=== PATIENT | female | born 1990 | race Hispanic/Latino ===

== ENCOUNTER 2018-01-10 21:36 | Outpatient (CLI) | payer SELFPAY ==
[2018-01-10] MEDS ORDERED: LACTATED RINGERS 1,000 ML IV ONE (22:57)
[2018-01-11 00:16] LABS: Bacteria,Urine 1+ /HPF (Negative); Bilirubin,Urine NEG (Negative); Blood,Urine NEG (Negative); Calcium Oxalate Crystals,Urine FEW; Color,Urine Amber (Yellow); Mucus,Urine 1+ /HPF
[2018-01-11 00:19] LABS: Amphetamine Screen,Urine PRESUMPTIVE NEGATIVE; Benzodiazepines Screen,Urine PRESUMPTIVE NEGATIVE; Cannabinoid Screen,Urine PRESUMPTIVE NEGATIVE; Cocaine Screen,Urine PRESUMPTIVE NEGATIVE; Methadone Screen,Urine PRESUMPTIVE NEGATIVE; Opiate Screen,Urine PRESUMPTIVE NEGATIVE
[2018-01-11] MEDS ORDERED: ceFAZolin 2 GM in NACL 0.9% 100 ML IV ONE (00:51)
[2018-01-11 00:56] VITALS: BP 138/77
[2018-01-11] MEDS: BRETHINE SUB-Q SCH ×3 (01:00→01:53)
== END 2018-01-11 02:22 | disposition home or self-care (01) ==
LOC: TRG 21:36
PROVIDERS: ATTEND Obstetrics & Gynecology
DX: O47.03 False labor before 37 completed weeks of gestation, third trimester (principal); O99.333 Smoking (tobacco) complicating pregnancy, third trimester; Z3A.36 36 weeks gestation of pregnancy
CPT/HCPCS: 59025; 80307; 81001; 87116; 96360; 96361; 96365; 96372; J0690; J3105; J7120

== ENCOUNTER 2018-01-12 07:47 | Inpatient (IN) | payer OTHER ==
[2018-01-12] MEDS ORDERED: LACTATED RINGERS 1,000 ML IV ONE (08:25)
[2018-01-12] MEDS ORDERED: LACTATED RINGERS 1,000 ML ONE (08:40)
[2018-01-12 11:16] LABS: Hematocrit 35.5 % (30.3-42.9); Hemoglobin 12.2 gm/dl (10.1-14.3); Mean Corpuscular HGB Conc 34 % (30-34); Mean Corpuscular Hemoglobin 29 pg (28-32); Mean Corpuscular Volume 84 fl (79-97); Platelet Count 210 K/mm3 (140-440); Red Blood Count 4.21 M/mm3 (3.65-5.03)
[2018-01-12 11:30] LABS: Alanine Aminotransferase 9 units/L (7-56)
[2018-01-12] MEDS ORDERED: LACTATED RINGERS 1,000 ML IV SCH ×2 (12:00→13:00)
[2018-01-12] MEDS ORDERED: MINERAL OIL PO PRN ×2 (12:36→12:56)
[2018-01-12] MEDS ORDERED: XYLOCAINE 2% INFILTRATI ONE ×2 (12:36→12:56)
[2018-01-12] MEDS ORDERED: STADOL IV PRN (12:36)
[2018-01-12] MEDS ORDERED: SUBLIMAZE IV PRN (12:36)
[2018-01-12] MEDS ORDERED: POLYCILLIN/NS 2 GM/100 ML 2 GM/100 ML BAG IV ONE (12:36)
[2018-01-12] MEDS ORDERED: ZOFRAN IV PRN ×2 (12:56→21:45)
[2018-01-12] MEDS ORDERED: BRETHINE SUB-Q PRN (12:56)
[2018-01-12] MEDS ORDERED: BRETHINE IVP PRN (12:56)
--- NOTE | 2018-01-12 12:56 | History and Physical Report ---
History of Present Illness Date of examination: 01/12/18 Date of admission: 01/12/18 07:48 Chief complaint: Labor History of present illness: Pt is a 28yo WF EDC 02/03/18; EGA 36 6/7 weeks presents to L&D complaining of RUC's q 3-4 mins and is currently dilated 4/70/V/-2. She has not had care with this , but had a C Section @ 30 weeks with her previous , and desires a TOLAC. She has a history of drug use and suicidal attempts, but none recently. Past History Past Medical History: no pertinent history Past Surgical History: section Family/Genetic History: none Social history: no significant social history, single - Obstetrical History Expected Date of Delivery: 02/03/18 Actual Gestation: 36 Week(s) 6 Day(s) : 3 Medications and Allergies Allergies Allergy/AdvReac Type Severity Reaction Status Date / Time No Known Allergies Allergy Verified 01/12/18 07:55 Home Medications Medication Instructions Recorded Confirmed Last Taken Type Vit-Fe Fumar-FA [ 1 tab PO QDAY 01/12/18 01/12/18 01/09/18 09: 00 History Vitamin] 1 Active Meds: Active Medications Butorphanol Tartrate (Stadol) 2 mg IV Q2H PRN PRN Reason: Pain , Severe (7-10) Fentanyl (Sublimaze) 100 mcg IV Q2H PRN PRN Reason: Labor Pain Lactated Ringer's (Lactated Ringers) 1,000 mls @ 125 mls/hr IV DIRECT JOE Ampicillin Sodium (Polycillin/Ns 2 Gm/100 Ml) 2 gm in 100 mls @ 100 mls/hr IV ONCE ONE; Protocol Stop: 01/12/18 13:35 Mineral Oil (Mineral Oil) 30 ml PO QHS PRN PRN Reason: Constipation Review of Systems All systems: negative - Vital Signs Vital signs: Vital Signs Pulse Pulse Ox 86 95 01/12/18 08:12 01/12/18 08:12 Temp Pulse Resp BP Pulse Ox 97.9 F 88 20 127/81 97 01/12/18 08:15 01/12/18 12:28 01/12/18 08:15 01/12/18 12:28 01/12/18 12:19 - Physical Exam Breasts: Positive: deferred Cardiovascular: Regular rate Lungs: Positive: Clear to auscultation Abdomen: Positive: normal appearance, soft Genitourinary (Female): Positive: normal external genitalia Vagina: Positive: normal moisture Uterus: Positive: enlarged Extremities: Positive: normal - Obstetrical FHR: category 1 Uterine Contraction Monitor Mode: External Cervical Dilatation: 4 Cervical Effacement Percentage: 70 station: -2 Uterine Contraction Pattern: Regular Uterine Tone Measurement Phase: Contraction Uterine Contraction Intensity: Moderate Results Result Diagrams: 01/12/18 10:26 01/12/18 10:26 Abnormal lab results 01/12/18 Range/Units 10:26 Creatinine 0.4 L (0.7-1.2) mg/dL All other labs normal. Assessment and Plan - Patient Problems (1) 36 weeks gestation of Onset Date: 01/12/18 Current Visit: Yes Status: Acute Plan to address problem: A: IUP @ 36 6/7 weeks in labor Previous C Section No care History of drug use P: Admit to L&D for expectant vaginal delivery () Obtain labs. (2) Previous section Onset Date: 01/12/18 Current Visit: Yes Status: Chronic (3) Cocaine abuse Onset Date: 01/12/18 Current Visit: No Status: Chronic (4) Insufficient care in third trimester Onset Date: 01/12/18 Current Visit: No Status: Acute
[2018-01-12] MEDS ORDERED: PITOCin/NS 30 UNIT/500ML 30 UNITS/500 ML BAG IV SCH (13:00)
[2018-01-12] MEDS ORDERED: PITOCin/NS 20 UNIT/1000ML DRIP 20 UNITS/1,000 ML BAG IV SCH ×2 (13:00→22:00)
--- NOTE | 2018-01-12 13:55 | Anesthesia Consultation ---
Anesthesia Consult and Med Hx Date of service: 01/12/18 - Airway Anesthetic Teeth Evaluation: Poor ROM Head & Neck: Adequate Mental/Hyoid Distance: Adequate Mallampati Class: Class II Intubation Access Assessment: Probably Good - Pre-Operative Health Status ASA Pre-Surgery Classification: ASA2 Proposed Anesthetic Plan: Epidural, Spinal - Pulmonary Hx Asthma: No COPD: No Hx Pneumonia: No - Cardiovascular System Hx Hypertension: No - Central Nervous System Hx Seizures: No Hx Psychiatric Problems: Yes (depression) - Endocrine Hx Renal Disease: No Hx End Stage Renal Disease: No Hx Hypothyroidism: No Hx Hyperthyroidism: No - Hematic Hx Anemia: Yes (w/first ) Hx Sickle Cell Disease: No - Other Systems Hx Alcohol Use: No Hx Substance Use: Yes (cocaine positive on UDS)
[2018-01-12] MEDS ORDERED: NARCAN 2 MG/2 ML IV PRN (14:00)
[2018-01-12] MEDS ORDERED: fentaNYL-BUPIV 2 MCG/ML-0.125% 200 MCG/100 ML BAG EPIDURAL SCH (14:00)
[2018-01-12 14:20] LABS: Bacteria,Urine 2+ /HPF (Negative); Bilirubin,Urine NEG (Negative); Blood,Urine LG (Negative); Color,Urine Yellow (Yellow); Mucus,Urine FEW /HPF; Protein,Urine <15 mg/dL mg/dL (Negative); Urobilinogen,Urine < 2.0 mg/dL (<2.0)
[2018-01-12 14:21] LABS: Amphetamine Screen,Urine PRESUMPTIVE NEGATIVE; Benzodiazepines Screen,Urine PRESUMPTIVE NEGATIVE; Cannabinoid Screen,Urine PRESUMPTIVE NEGATIVE; Cocaine Screen,Urine PRESUMPTIVE NEGATIVE; Methadone Screen,Urine PRESUMPTIVE NEGATIVE; Opiate Screen,Urine PRESUMPTIVE NEGATIVE
--- NOTE | 2018-01-12 15:07 | Ultrasound Report ---
OB ULTRASOUND History no care, rule out spontaneous rupture of membranes. Technique: Transabdominal ultrasound with Doppler interrogation. Gestation: Single Position: Cephalic Amniotic Fluid: Normal MERCED = 15.7 cm Placenta: Posterior Placental Grade: 2 Heart Rate: 135 BPM Cervical length: Obscured NEUROANATOMY VISUALIZED: Choroid Plexus Cisterna Magnum Cerebellum Lateral Ventricle ANATOMY VISUALIZED: Stomach Kidneys Bladder Diaphragm 4 Chamber Heart Heart 3 Vessel Cord Abd. Cord Insert SPINE VISUALIZED: Longitudinal Transverse BPD: 8.5 cm = 34 w 1 d HC: 31.1 cm = 34 w 6 d AC: 34.5 cm = 38 w 3 d FL: 7.3 cm = 37 w 3 d HC/AC Ratio: 0.9 Cephalic Index: 81.9 Estimated Weight: 3151 grams Clinical age = 36 w 6 d EDC: 02/03/18 US Gest. Age = 36 w 2 d EDC: 02/07/18 IMPRESSION: Viable, single intrauterine as described.
[2018-01-12] MEDS: AMPICILLIN/NS 1 GM/50 ML 1 GM/50 ML BAG IV SCH ×2 (17:21→20:47)
--- NOTE | 2018-01-12 21:42 | Procedure Note ---
OB Delivery Note - Delivery Date of Delivery: 01/12/18 Surgeon: LUL PRICE Estimated blood loss: 300cc - Vaginal Delivery presentation: vertex Delivery position: OA Intrapartum events: no care, labor-<37 weeks, PROM->1hr before delivery Delivery induction: none Delivery augmentation: pitocin Delivery monitor: external FHT, internal uterine Route of delivery: Delivery placenta: spontaneous Delivery cord: nuchal cord (x1), 3 umbilical vessels Episiotomy: none Delivery laceration: 2nd degree, vaginal side wall Delivery repair: vicryl Anesthesia: epidural Delivery comments: delivered OA and placed on Mom's chest for [id number] bonding and delayed cord clamping, cut by GrandMa. Peds/RT in attendance. - A at 1 minute: 8 at 5 minutes: 9 Infant Gender: Male (3247gms)
[2018-01-12] MEDS ORDERED: NORCO 5/325 PO PRN (21:45)
[2018-01-12] MEDS ORDERED: PHENERGAN PO PRN (21:45)
[2018-01-12] MEDS ORDERED: TYLENOL PO PRN (21:45)
[2018-01-12] MEDS ORDERED: LANSINOH TP PRN (21:45)
[2018-01-12] MEDS ORDERED: PHENERGAN PR PRN (21:45)
[2018-01-12] MEDS ORDERED: DULCOLAX PR PRN (21:45)
[2018-01-12] MEDS ORDERED: TUCKS PAD TP PRN (21:45)
[2018-01-12] MEDS ORDERED: BENADRYL PO PRN (21:45)
[2018-01-12] MEDS ORDERED: MILK OF MAGNESIA PO PRN (21:45)
[2018-01-12] MEDS ORDERED: SODIUM CHLORIDE FLUSH SYRINGE 10 ML IV PRN (22:00)
[2018-01-13] MEDS: COLACE PO SCH ×2 (01:39→21:52)
[2018-01-13] MEDS: MOTRIN PO SCH ×3 (01:41→23:58)
[2018-01-13] MEDS: FEOSOL PO SCH ×2 (06:49→21:52)
[2018-01-13 09:39] LABS: Hematocrit 32.1 % (30.3-42.9); Hemoglobin 10.9 gm/dl (10.1-14.3)
[2018-01-13] MEDS ORDERED: PRENATAL VITAMIN PO SCH (10:00)
--- NOTE | 2018-01-13 13:02 | Progress Note ---
Assessment and Plan - Patient Problems (1) 36 weeks gestation of Onset Date: 01/12/18 Current Visit: Yes Status: Resolved (2) Previous section Onset Date: 01/12/18 Current Visit: Yes Status: Resolved (3) Cocaine abuse Onset Date: 01/12/18 Current Visit: No Status: Resolved (4) Insufficient care in third trimester Onset Date: 01/12/18 Current Visit: No Status: Resolved (5) (normal spontaneous vaginal delivery) Onset Date: 01/13/18 Current Visit: Yes Status: Resolved Plan to address problem: A: S/P () - PPD#1 Doing well Asymptomatic anemia - stable P: May go home tomorrow. Subjective - Subjective Date of service: 01/13/18 Principal diagnosis: s/p - PPD #1 Interval history: Pt is feeling well without complaints. Bleeding improved. Patient reports: appetite normal, voiding normally, pain well controlled, flatus , ambulating normally, no dizzy ambulation, no nauseated : doing well, bottle feeding Objective - Vital Signs Latest vital signs: Vital Signs Temp Pulse Resp BP BP Pulse Ox 01/13/18 08:14 98.7 F 75 18 118/61 100 01/13/18 02:41 18 01/13/18 01:41 18 01/13/18 01:30 98.6 F 95 H 20 107/67 96 01/13/18 01:10 98.6 F 95 H 20 107/67 96 01/12/18 23:44 103 H 114/80 01/12/18 23:36 91 H 97 01/12/18 23:06 92 H 97 01/12/18 23:01 90 97 01/12/18 22:59 92 H 94 01/12/18 22:56 85 97 01/12/18 22:51 96 H 97 01/12/18 22:46 96 H 97 01/12/18 22:45 100 H 126/59 94 01/12/18 22:38 101 H 96 01/12/18 22:33 96 H 97 01/12/18 22:29 89 114/71 01/12/18 22:28 95 H 98 01/12/18 22:23 105 H 96 01/12/18 22:20 93 H 118/66 01/12/18 22:18 98 H 96 08/16/18 22:16 94 H 18 118/66 96 1618 22:13 93 H 97 1618 22:10 83 116/60 16/18 22:08 101 H 96 1618 22:04 87 18 116/60 97 16/18 22:03 85 97 1618 21:58 94 H 96 16/18 21:53 95 H 96 1618 21:48 98 H 94 1618 21:44 93 H 92 1618 21:43 81 134/79 98 16/18 21:40 98.0 F 99 H 18 134/79 97 16/18 21:22 84 94 1618 21:18 97 H 94 1618 21:13 89 95 1618 21:08 112 H 96 1618 21:03 91 H 97 1618 21:02 94 H 159/90 18 20:58 83 96 1618 20:53 88 96 1618 20:48 92 H 96 16/18 20:43 91 H 95 16/18 20:38 84 96 16/18 20:33 88 96 16/18 20:31 88 109/73 1618 20:28 98 H 96 16/18 20:23 81 96 1618 20:20 97 H 94 16/18 20:18 81 97 16/18 20:13 82 96 16/18 20:10 78 94 1618 20:08 89 95 16/18 20:03 85 94 16/18 20:01 76 115/67 16/18 19:58 89 96 16/18 19:53 84 96 16/18 19:48 85 96 16/18 19:43 81 96 16/18 19:38 91 H 97 16/18 19:33 87 95 16/18 19:31 72 111/61 16/18 19:29 75 113/59 94 16/18 19:28 84 95 16/18 19:23 80 96 16/18 19:21 98.2 F 84 18 113/59 96 08/16/18 19:18 81 97 08/16/18 19:13 82 100 08/16/18 19:08 80 95 08/16/18 19:03 87 96 08/16/18 19:01 76 116/60 08/16/18 18:58 85 97 08/16/18 18:53 95 H 96 08/16/18 18:48 91 H 95 08/16/18 18:43 82 96 08/16/18 18:39 80 94 08/16/18 18:38 77 96 08/16/18 18:33 84 95 08/16/18 18:32 84 94 08/16/18 18:31 83 120/79 08/16/18 18:28 77 96 08/16/18 18:23 78 97 08/16/18 18:22 100 H 94 08/16/18 18:18 90 95 08/16/18 18:13 74 96 08/16/18 18:08 78 96 08/16/18 18:03 77 95 08/16/18 17:58 77 96 08/16/18 17:53 79 97 08/16/18 17:48 77 96 08/16/18 17:43 85 96 08/16/18 17:38 69 96 08/16/18 17:33 79 96 08/16/18 17:32 73 107/61 08/16/18 17:28 80 96 08/16/18 17:23 77 96 08/16/18 17:18 80 97 08/16/18 17:13 76 97 08/16/18 17:08 66 98 08/16/18 17:03 98.1 F 91 H 16 98 08/16/18 16:58 89 97 08/16/18 16:53 72 98 08/16/18 16:48 70 96 08/16/18 16:45 99 H 94 08/16/18 16:44 85 103/59 08/16/18 16:43 80 96 08/16/18 16:39 69 93 08/16/18 16:38 92 H 95 08/16/18 16:33 80 95 08/16/18 16:28 92 H 99/56 94 08/16/18 16:24 84 94 08/16/18 16:23 80 96 08/16/18 16:18 95 H 95 08/16/18 16:14 88 108/62 08/16/18 16:13 95 H 98 08/16/18 16:08 86 95 08/16/18 16:07 91 H 94 08/16/18 16:03 86 94 08/16/18 16:01 80 94 08/16/18 16:00 78 102/59 08/16/18 15:58 75 94 08/16/18 15:56 76 94 08/16/18 15:53 77 95 08/16/18 15:48 79 95 08/16/18 15:43 85 101/56 95 /16/18 15:38 71 97 08/16/18 15:33 81 94 /16/18 15:29 82 101/56 08/16/18 15:28 83 96 /16/18 15:23 80 99 08/16/18 15:18 79 100 /16/18 15:13 70 102/61 97 /16/18 15:08 83 96 /16/18 15:03 86 95 /16/18 14:58 76 98/56 98 /16/18 14:53 88 97 /16/18 14:49 77 88 /16/18 14:48 97 H 98 /16/18 14:45 86 109/57 /16/18 14:43 97 H 97 16/18 14:38 97 H 95 /16/18 14:33 83 95 /16/18 14:30 79 105/59 08/16/18 14:28 100 H 97 16/18 14:23 85 96 /16/18 14:18 107 H 98 16/18 14:14 92 H 97/54 /16/18 14:13 89 97 /16/18 14:08 96 H 97 /16/18 13:59 87 119/71 08/16/18 13:56 93 H 115/69 08/16/18 13:52 84 118/57 08/16/18 13:40 88 121/65 08/16/18 13:35 87 96 08/16/18 13:30 88 95 08/16/18 13:25 94 H 95 /16/18 13:23 90 94 08/16/18 13:20 92 H 95 /16/18 13:16 85 94 08/16/18 13:15 87 94 01/12/18 13:10 82 94 Intake and Output 01/12/18 01/13/18 01/13/18 22:59 06:59 14:59 Intake Total 50 Output Total 400 1000 Balance -350 -1000 Intake: IV 50 AMPICILLIN/NS 1 GM/50 ML 50 1 gm In 50 ml @ 100 mls/ hr IV Q4HR JOE Rx#: [id number] Output: Urine 400 1000 Void 400 1000 Other: Total, Output Amount 400 1000 Voiding Method Toilet # Voids Void 1 Estimated Blood Loss 300 - Exam Breasts: Present: deferred Cardiovascular: Present: Regular rate Lungs: Present: Clear to auscultation Abdomen: Present: normal appearance, soft Uterus: Present: normal, firm, fundal height below umbilicus Extremities: Present: normal - Labs Labs: Abnormal lab results 01/12/18 Range/Units 11:17 Urine WBC (Auto) 22.0 H (0.0-6.0) /HPF Laboratory Tests 01/12/18 01/12/18 01/12/18 10:21 10:26 10:26 WBC 10.1 RBC 4.21 Hgb 12.2 Hct 35.5 MCV 84 MCH 29 MCHC 34 RDW 14.0 Plt Count 210 Creatinine 0.4 L Estimated GFR > 60 Uric Acid AST 12 ALT 9 Lactate Dehydrogenase 147 Urine Color Urine Turbidity Urine pH Ur Specific [place] Urine Protein Urine Glucose (UA) Urine Ketones Urine Blood Urine Nitrite Urine Bilirubin Urine Urobilinogen Ur Leukocyte Esterase Urine WBC (Auto) Urine RBC (Auto) U Epithel Cells (Auto) Urine Bacteria (Auto) Urine Mucus Urine Opiates Screen Urine Methadone Screen Ur Barbiturates Screen Ur Phencyclidine Scrn Ur Amphetamines Screen U Benzodiazepines Scrn Urine Cocaine Screen U Marijuana (THC) Screen Drugs of Abuse Note RPR HIV 1&2 Antibody Rapid HIV P24 Antigen Blood Type A POSITIVE Antibody Screen Negative 01/12/18 01/12/18 01/12/18 10:26 10:42 11:17 WBC RBC Hgb Hct MCV MCH MCHC RDW Plt Count Creatinine Estimated GFR Uric Acid 5.0 AST ALT Lactate Dehydrogenase Urine Color Yellow Urine Turbidity Slightly-cloudy Urine pH 6.0 Ur Specific [place] 1.011 Urine Protein <15 mg/dl Urine Glucose (UA) Neg Urine Ketones Neg Urine Blood Lg Urine Nitrite Neg Urine Bilirubin Neg Urine Urobilinogen < 2.0 Ur Leukocyte Esterase Lg Urine WBC (Auto) 22.0 H Urine RBC (Auto) 3.0 U Epithel Cells (Auto) 4.0 Urine Bacteria (Auto) 2+ Urine Mucus Few Urine Opiates Screen Urine Methadone Screen Ur Barbiturates Screen Ur Phencyclidine Scrn Ur Amphetamines Screen U Benzodiazepines Scrn Urine Cocaine Screen U Marijuana (THC) Screen Drugs of Abuse Note RPR Nonreactive HIV 1&2 Antibody Rapid HIV P24 Antigen Blood Type Antibody Screen 01/12/18 01/12/18 01/13/18 14:02 21:52 09:22 WBC RBC Hgb 10.9 Hct 32.1 MCV MCH MCHC RDW Plt Count Creatinine Estimated GFR Uric Acid AST ALT Lactate Dehydrogenase Urine Color Urine Turbidity Urine pH Ur Specific [place] Urine Protein Urine Glucose (UA) Urine Ketones Urine Blood Urine Nitrite Urine Bilirubin Urine Urobilinogen Ur Leukocyte Esterase Urine WBC (Auto) Urine RBC (Auto) U Epithel Cells (Auto) Urine Bacteria (Auto) Urine Mucus Urine Opiates Screen Presumptive negative Urine Methadone Screen Presumptive negative Ur Barbiturates Screen Presumptive negative Ur Phencyclidine Scrn Presumptive negative Ur Amphetamines Screen Presumptive negative U Benzodiazepines Scrn Presumptive negative Urine Cocaine Screen Presumptive negative U Marijuana (THC) Screen Presumptive negative Drugs of Abuse Note Disclamer RPR HIV 1&2 Antibody Rapid Non react HIV P24 Antigen Non react Blood Type Antibody Screen
[2018-01-13] MEDS ORDERED: M-M-R II VACCINE SUB-Q ONE (21:45)
[2018-01-14] MEDS: MOTRIN PO SCH ×3 (05:39→17:43)
[2018-01-14] MEDS ORDERED: BOOSTRIX IM ONE (06:00)
--- NOTE | 2018-01-14 10:24 | Discharge Summary ---
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 Condition at discharge: Good Disposition: DC-01 TO HOME OR SELFCARE - Discharge Diagnoses (1) 36 weeks gestation of Status: Resolved (2) Previous section Status: Resolved (3) Cocaine abuse Status: Resolved Comment: pt states she will go to rehab (4) Insufficient care in third trimester Status: Resolved (5) (normal spontaneous vaginal delivery) Status: Resolved Plan - Discharge Medications Prescriptions: Ferrous Sulfate [Feosol 325 MG tab] 325 mg PO BID #60 tablet Ibuprofen [Motrin 600 MG tab] 600 mg PO Q6HR #30 tablet Vit-Fe Fumar-FA [ Vitamin] 1 each PO QDAY #30 tablet - Provider Discharge Summary Activity: routine, no sex for 6 weeks, no heavy lifting 4 weeks, no strenuous exercise Diet: routine Instructions: routine Additional instructions: [] Smoking cessation referral if applicable(refer to patient education folder for contact #) [] Refer to [facility] Booklet Call your doctor immediately for: * Fever > 100.5 * Heavy vaginal bleeding ( >1 pad per hour) * Severe persistent headache * Shortness of breath * Reddened, hot, painful area to leg or breast * Drainage or odor from incision. * Keep incision clean and dry at all times and follow doctor's instructions regarding bathing/showering - Follow up plan Follow up: LUL PRICE MD [Primary Care Provider] - 6 Weeks
[2018-01-14] MEDS: COLACE PO SCH (12:43)
[2018-01-14] MEDS: FEOSOL PO SCH (12:43)
[2018-01-14] MEDS ORDERED: DERMOPLAST TP PRN (13:45)
[2018-01-14 17:10] VITALS: BP 102/57
== END 2018-01-14 20:50 | disposition home or self-care (01) | DRG 775 ==
LOC: TRG 07:47 → LD 07:48 → TRG 07:48 → OB 01-13 01:04
PROVIDERS: ADMIT Obstetrics & Gynecology; ATTEND Obstetrics & Gynecology
PROC: 10E0XZZ Delivery of Products of Conception, External Approach (ICD-10-PCS; principal; 2018-01-12)
PROC: 0KQM0ZZ Repair Perineum Muscle, Open Approach (ICD-10-PCS; 2018-01-12)
PROC: 3E0234Z Introduction of Serum, Toxoid and Vaccine into Muscle, Percutaneous Approach (ICD-10-PCS; 2018-01-12)
PROC: 3E0R3BZ Introduction of Anesthetic Agent into Spinal Canal, Percutaneous Approach (ICD-10-PCS; 2018-01-12)
PROC: 00HU33Z Insertion of Infusion Device into Spinal Canal, Percutaneous Approach (ICD-10-PCS; 2018-01-12)
DX: O60.14X0 Preterm labor third trimester with preterm delivery third trimester, not applicable or unspecified (principal); O99.324 Drug use complicating childbirth; O71.4 Obstetric high vaginal laceration alone; Z3A.36 36 weeks gestation of pregnancy; Z37.0 Single live birth; Z23 Encounter for immunization; F14.10 Cocaine abuse, uncomplicated; O99.344 Other mental disorders complicating childbirth; F32.9 Major depressive disorder, single episode, unspecified; O69.81X0 Labor and delivery complicated by cord around neck, without compression, not applicable or unspecified; O99.02 Anemia complicating childbirth; D64.9 Anemia, unspecified
CPT/HCPCS: 36415; 59025; 76805; 80307; 81001; 82565; 83615; 84450; 84460; 84550; 85014; 85018; 85027; 86592; 86762; 86850; 86900; 86901; 87806; 90471; 90715; 96361; 99211; G0463; J0290; J2590; J3010; J7120

== ENCOUNTER 2020-01-09 21:32 | Emergency (ER) | payer MEDICAID ==
[2020-01-10 00:12] LABS: Hematocrit 39.3 % (30.3-42.9); Mean Corpuscular HGB Conc 33 % (30-34); Mean Corpuscular Volume 76 fl (79-97); Platelet Count 324 K/mm3 (140-440); Red Blood Count 5.16 M/mm3 (3.65-5.03); Red Cell Distribution Width 15.7 % (13.2-15.2)
[2020-01-10 01:46] LABS: Alanine Aminotransferase 10 units/L (7-56); BUN/Creatinine Ratio 15; Blood Urea Nitrogen 12 mg/dL (7-17); Calcium 9.1 mg/dL (8.4-10.2); Hemolysis Index 6
[2020-01-10 03:56] LABS: Band Neutrophils # (Manual) 0.6 K/mm3; Basophils % (Manual) 0 % (0.0-1.8); Total Cells Counted 100
[2020-01-10 03:58] LABS: Hypochromasia 1+; Stomatocytes Rare
[2020-01-10 04:02] LABS: Platelet Estimate Consistent w Auto
== END 2020-01-09 23:25 | disposition left against medical advice (07) ==
LOC: ED 21:32
DX: O46.91 Antepartum hemorrhage, unspecified, first trimester (principal); Z3A.01 Less than 8 weeks gestation of pregnancy; Z53.21 Procedure and treatment not carried out due to patient leaving prior to being seen by health care provider
CPT/HCPCS: 36415; 84702; 85007; 85025; 86900; 86901

== ENCOUNTER 2021-07-26 01:54 | Inpatient (IN) | payer MEDICAID ==
[2021-07-26] MEDS ORDERED: fentaNYL 100 MCG/2 ML INJ IV PRN (02:12)
[2021-07-26] MEDS ORDERED: LIDOCAINE (2%) 20 MG/1 ML VIAL 20 ML MDV INFILTRATI ONE (02:12)
[2021-07-26] MEDS ORDERED: ACETAMINOPHEN 325 MG TAB PO PRN (02:12)
[2021-07-26] MEDS ORDERED: TERBUTALINE 1 MG/1 ML INJ SUB-Q PRN (02:12)
[2021-07-26] MEDS ORDERED: OXYTOCIN 10 UNIT/1 ML INJ IM PRN (02:12)
[2021-07-26] MEDS ORDERED: ePHEDrine SULFATE 50 MG/1 ML INJ IV PRN (02:12)
[2021-07-26] MEDS ORDERED: CARBOPROST TROMETHAMINE 250 MCG/1 ML INJ IM PRN (02:12)
[2021-07-26] MEDS ORDERED: LOPERAMIDE 2 MG CAP PO PRN (02:12)
[2021-07-26] MEDS ORDERED: miSOPROStol 200 MCG TAB PR PRN (02:12)
[2021-07-26] MEDS ORDERED: METHYLERGONOVINE MALEATE 0.2 MG/ML VIAL IM PRN (02:12)
[2021-07-26] MEDS ORDERED: MINERAL OIL 30 ML ORAL LIQD PO PRN (02:12)
[2021-07-26] MEDS ORDERED: BUTORPHANOL 2 MG/1 ML INJ IV PRN (02:12)
[2021-07-26] MEDS ORDERED: LACTATED RINGERS 1,000 ML IV SCH (02:15)
[2021-07-26 02:35] LABS: Hematocrit 32.7 % (30.3-42.9); Hemoglobin 10.1 gm/dl (10.1-14.3); Mean Corpuscular HGB Conc 31 % (30-34); Mean Corpuscular Volume 73 fl (79-97); Platelet Count 283 K/mm3 (140-440); Red Blood Count 4.48 M/mm3 (3.65-5.03); Red Cell Distribution Width 14.8 % (13.2-15.2)
--- NOTE | 2021-07-26 02:59 | History and Physical Report ---
History of Present Illness Date of examination: 07/26/21 Date of admission: 07/26/21 01:54 History of present illness: 31-year-old -0-2-3 with unknown gestation presents after having a spo ntaneous vaginal delivery of a viable female at her home. The patient has not had any care during the course of her . The patient was unaware that she was . Her is complicated by crack addiction, psychiatric disorder, and previous delivery. At the time of presentation, the location of the placenta was unknown. Past History Past Medical History: other (Depression; crack cocaine addiction) Past Surgical History: section Social history: single - Obstetrical History : 5 Para: 3 Hx # Term Pregnancies: 3 Number of Pregnancies: 0 Spontaneous Abortions: 2 Induced : 0 Number of Living Children: 3 Medications and Allergies Allergies Allergy/AdvReac Type Severity Reaction Status Date / Time No Known Allergies Allergy Verified 12/05/19 11:37 Home Medications Medication Instructions Recorded Confirmed Last Taken Type Vit-Fe Fumar-FA [ 1 tab PO QDAY 01/12/18 01/12/18 01/09/18 09:00 History Vitamin] 1 Ferrous Sulfate [Feosol 325 MG tab] 325 mg PO BID #60 tablet 01/14/18 Unknown Rx Ibuprofen [Motrin 600 MG tab] 600 mg PO Q6HR #30 tablet 01/14/18 Unknown Rx Vit-Fe Fumar-FA [ 1 each PO QDAY #30 tablet 01/14/18 Unknown Rx Vitamin] Albuterol Mdi (or & Nicu Only) 2 puff IH QID PRN #8.5 gram 11/19/19 Unknown Rx [ProAir HFA Inhaler] Amoxicillin/Potassium Clav 1 each PO BID 10 Days #20 tablet 11/19/19 Unknown Rx [Augmentin 875-125 Tablet] Phenazopyridine [Pyridium] 200 mg PO BID #10 tab 12/05/19 Unknown Rx Active Meds: Active Medications Acetaminophen (Acetaminophen 325 Mg Tab) 650 mg PO Q4H PRN PRN Reason: Pain, Mild (1-3) Butorphanol Tartrate (Butorphanol 2 Mg/1 Ml Inj) 1 mg IV Q2H PRN PRN Reason: Pain, Moderate(4-6) LABOR PAIN Carboprost Tromethamine (Carboprost Tromethamine 250 Mcg/1 Ml Inj) 250 mcg IM ONCE PRN PRN Reason: Uterine Bleeding Ephedrine Sulfate (Ephedrine Sulfate 50 Mg/1 Ml Inj) 10 mg IV Q2M PRN PRN Reason: Hypotension Fentanyl (Fentanyl 100 Mcg/2 Ml Inj) 100 mcg IV Q2H PRN PRN Reason: Pain,Severe (7-10) LABOR PAIN Oxytocin/Sodium Chloride (Pitocin/Ns 30 Unit/500ml) 30 units in 500 mls @ 2 mls/hr IV TITR JOE; Protocol Lactated Ringer's (Lactated Ringers) 1,000 mls @ 125 mls/hr IV DIRECT JOE Oxytocin/Sodium Chloride (Pitocin/Ns 30 Unit/500ml) 30 units in 500 mls @ 40 mls/hr IV TITR JOE; Protocol Loperamide HCl (Loperamide 2 Mg Cap) 2 mg PO ONCE PRN PRN Reason: give with Hemabate Methylergonovine Maleate (Methylergonovine Maleate 0.2 Mg/Ml Vial) 0.2 mg IM ONCE PRN PRN Reason: Uterine Bleeding Mineral Oil (Mineral Oil 30 Ml Oral Liqd) 30 ml PO QHS PRN PRN Reason: Constipation Misoprostol (Misoprostol 200 Mcg Tab) 800 mcg NV ONCE PRN PRN Reason: Uterine Bleeding Oxytocin (Oxytocin 10 Unit/1 Ml Inj) 10 unit IM ONCE PRN PRN Reason: Uterine Bleeding Terbutaline Sulfate (Terbutaline 1 Mg/1 Ml Inj) 0.25 mg SUB-Q ONCE PRN PRN Reason: Hyperstimulation/Hypertonicity Review of Systems All systems: negative - Vital Signs Vital signs: Vital Signs Pulse Pulse Ox 96 H 100 07/26/21 01:55 07/26/21 01:55 Temp Pulse Resp BP Pulse Ox 98.4 F 104 H 16 159/70 97 07/26/21 02:15 07/26/21 02:50 07/26/21 02:15 07/26/21 02:43 07/26/21 02:50 - Physical Exam Breasts: Positive: deferred, mass Lungs: Positive: Clear to auscultation Abdomen: Positive: normal appearance Results Result Diagrams: 07/26/21 02:00 Abnormal lab results 07/26/21 Range/Units 02:00 WBC 13.9 H (4.5-11.0) K/mm3 MCV 73 L (79-97) fl MCH 23 L (28-32) pg All other labs normal. Assessment and Plan - Patient Problems (1) Spontaneous vaginal delivery Current Visit: Yes Status: Acute Plan to address problem: care as planned (2) Self mutilating behavior Current Visit: No Status: Acute (3) Cocaine abuse Onset Date: 01/12/18 Current Visit: No Status: Resolved (4) Previous section Onset Date: 01/12/18 Current Visit: No Status: Resolved
[2021-07-26] MEDS ORDERED: OXYTOCIN DRIP 30 UNITS/500 ML BAG IV SCH ×2 (03:00)
--- NOTE | 2021-07-26 03:01 | Procedure Note ---
OB Delivery Note - Delivery Date of Delivery: 07/26/21 Surgeon: MARLYN PEDROZA - Vaginal Delivery presentation: vertex Intrapartum events: no care, precipitous labor- <3hr Route of delivery: Delivery placenta: spontaneous Delivery laceration: none Delivery comments: The patient had a spontaneous vaginal delivery of a liveborn female infant with a weight of 6 pounds 3 ounces. The delivery occurred at her home. The patient was taken via EMS for further evaluation. The location of the placenta was unknown at the time of presentation. Bedside ultrasound was performed that demonstrated absence of an intrauterine placenta. Her vaginal bleeding was scant on presentation. No vaginal lacerations were noted. - Infant A Infant Gender: Female (Weight 6 pounds 3 ounces)
[2021-07-26] MEDS ORDERED: WITCH HAZEL/ GLYCERIN PAD TP PRN (03:02)
[2021-07-26] MEDS ORDERED: ONDANSETRON 4 MG/2 ML INJ IV PRN (03:02)
[2021-07-26] MEDS ORDERED: PROMETHAZINE 25 MG RECT SUPP PR PRN (03:02)
[2021-07-26] MEDS ORDERED: KETOROLAC 30 MG/1 ML INJ IV PRN (03:02)
[2021-07-26] MEDS ORDERED: LANOLIN/ZINC/DIMETHICONE (LANSINOH) 7 GM TP PRN (03:02)
[2021-07-26] MEDS ORDERED: diphenhydrAMINE 25 MG CAP PO PRN (03:02)
[2021-07-26] MEDS ORDERED: MAGNESIUM HYDROXIDE (MOM) ORAL LIQD UDC PO PRN (03:02)
[2021-07-26] MEDS ORDERED: PROMETHAZINE 25 MG TAB PO PRN (03:02)
[2021-07-26 03:16] LABS: Hepatitis C Virus Antibody Nonreactive (NonReactive)
[2021-07-26] MEDS: IBUPROFEN 600 MG TAB PO SCH ×4 (05:07→21:33)
[2021-07-26 06:11] LABS: Bacteria,Urine 1+ /HPF (Negative); Bilirubin,Urine NEG (Negative); Blood,Urine LG (Negative); Color,Urine Yellow (Yellow); Mucus,Urine FEW /HPF; Protein,Urine <15 mg/dL mg/dL (Negative); Urobilinogen,Urine < 2.0 mg/dL (<2.0)
[2021-07-26 06:18] LABS: Amphetamine Screen,Urine Negative; Benzodiazepines Screen,Urine Negative; Cannabinoid Screen,Urine Negative; Methadone Screen,Urine Negative; Opiate Screen,Urine Negative
[2021-07-26 06:30] LABS: Cocaine Screen,Urine Positive
[2021-07-26] MEDS: ACETAMINOPHEN 325 MG TAB PO PRN ×2 (10:10→15:14)
[2021-07-26 19:17] LABS: Hematocrit 23.8 % (30.3-42.9); Hemoglobin 8.5 gm/dl (10.1-14.3)
[2021-07-27] MEDS: IBUPROFEN 600 MG TAB PO SCH ×4 (05:28→23:27)
--- NOTE | 2021-07-27 08:22 | Progress Note ---
Assessment and Plan A: PPD#1 s/p Obesity Report of right calf pain P: Right lower extremity doppler study Routine care Subjective - Subjective Date of service: 07/27/21 Principal diagnosis: s/p , unsure gestational age Interval history: Pt moaning this morning, reporting "it hurts" Patient reports: voiding normally, ambulating normally [place]: in NICU Objective - Vital Signs Latest vital signs: Vital Signs Temp Pulse Resp BP Pulse Ox Pulse Ox 07/27/21 07:33 98.0 F 66 18 123/71 98 07/27/21 06:28 18 07/27/21 05:28 18 07/27/21 00:38 97.6 F 78 18 116/68 98 07/26/21 22:29 18 07/26/21 22:15 100 07/26/21 21:33 18 07/26/21 15:10 98.1 F 82 18 120/74 98 07/26/21 10:10 97 Intake and Output 07/26/21 07/27/21 07/27/21 22:59 06:59 14:59 Intake Total 720 240 240 Balance 720 240 240 Intake: Oral 720 240 240 Other: Total, Intake Amount 240 120 240 # Voids Void 1 1 - Exam Breasts: Present: deferred Abdomen: Present: soft (obese ) Uterus: Present: fundal height at umbilicus Extremities: Present: tenderness (right calf ) - Labs Labs: Abnormal lab results 07/26/21 Range/Units 18:48 Hgb 8.5 L (10.1-14.3) gm/dl Hct 23.8 L D (30.3-42.9) %
--- NOTE | 2021-07-27 11:23 | Vascular Lab Report ---
DUPLEX DOPPLER LOWER EXTREMITY VEINS, RIGHT INDICATION / CLINICAL INFORMATION: Right calf pain, recent vaginal delivery. TECHNIQUE: Duplex doppler imaging was performed through the veins of the right lower extremity using venous compression and other maneuvers. COMPARISON: None available. FINDINGS: RIGHT COMMON FEMORAL VEIN: Negative. RIGHT FEMORAL VEIN: Negative. RIGHT POPLITEAL VEIN: Negative. RIGHT CALF VEINS: Negative. ADDITIONAL FINDINGS: None. IMPRESSION: 1. No sonographic evidence for DVT in the right lower extremity. Signer Name: Ras Ashley MD Signed: 07/27/2021 11:19 AM Workstation Name: [id number]
--- NOTE | 2021-07-27 11:26 | Consultation ---
History of Present Illness - Reason for Consult Consult date: 07/27/21 Reason for consult: depression - History of Present Psychiatric Illness The patient was seen today. She was admitted for childbirth. The patient is child-like. She has the baby's father at bedside. The patient tells me it's okay to talk in front of him when I ask her. She says she has a history of depression, PTSD. She says she was on meds but stopped taking them about a year ago because they made her feel like a zombie. The patient also admits to crack cocaine use. She says she is depressed. When asking the patient why she was depressed, she initially says "I don't really know." She then says "just a lot of things going on." The patient says "I miss my baby." She says this is her first girl. She denies hallucinations of any kind. She denies SI/HI or any fear of endangerment for her life or the life of others. Discussed with the patient the benefit of medication therapy and counseling. She agrees that she wants to get back on an antidepressant and do therapy. PAST PSYCHIATRIC HISTORY Diagnoses: Depression, PTSD Suicide attempts or Self-harm behavior: Denies Prior psychiatric hospitalizations: Denies Substance Abuse history: Crack cocaine Previous psychiatric medications tried: Could not recall Outpatient treatment: not presently PAST MEDICAL HISTORY: Family Psychiatric History: Not available SOCIAL HISTORY Marital Status: Single Living Arrangements: Lives baby's father Employment Status: Unemployed Access to guns/weapons: None reported Education: 10th History of Abuse: None reported Legal History: None reported REVIEW OF SYSTEMS Constitutional: Negative for weight loss ENT: Negative for stridor Respiratory: Negative for cough or hemoptysis All other systems reviewed and are negative MENTAL STATUS EXAMINATION General Appearance and Behavior: Age appropriate, good hygiene, wearing appr opriate clothes, good eye contact, cooperative polite with questioning. Cooperation: Participating/engaged Psychomotor Behavior: unremarkable and within normal limits Mood: depressed Affect and affective range: Euthymic Thought Process: Goal oriented Thought Content: Reality oriented Speech: Normal volume, Regular rate and rhythm Suicidal Ideation: Denies Homicidal Ideation: Denies Hallucinations: Denies Impulse Control: Normal Insight and Judgment:Limited insight and good judgment Memory: Normal Attention: Attentive Orientation: Alert, oriented x4 Assessment and Plan (1) Major depressive disorder Current Visit: Yes Status: Acute RECOMMENDATIONS Zoloft 25mg po daily Risks, benefits and alternatives of medications discussed with the patient, questions answered and consent obtained from patient. PSYCHOTHERAPY: Supportive psychotherapy provided MEDICAL: Per primary team DELIRIUM PRECAUTIONS: Please re-orient patient frequently, keep lights on during the day, and minimize benzodiazepines and opiates as these medications could worsen patient's confusion. X RAY SERVICE TECHNICIAN: Per medical team DISPOSITION: Do not recommend acute inpatient psychiatric hospitalization at this time. The bleach analyst will provide patient with psychiatric outpatient resources. FOLLOW-UP: Will sign off. Thank you for the consult. Please contact with any questions and/or concerns. Medications and Allergies Allergies Allergy/AdvReac Type Severity Reaction Status Date / Time No Known Allergies Allergy Verified 07/26/21 04:18 Home Medications Medication Instructions Recorded Confirmed Last Taken Type Vit-Fe Fumar-FA [ 1 tab PO QDAY 01/12/18 07/26/21 01/09/18 09:00 History Vitamin] 1 Ferrous Sulfate [Feosol 325 MG tab] 325 mg PO BID #60 tablet 01/14/18 07/26/21 Unknown Rx Ibuprofen [Motrin 600 MG tab] 600 mg PO Q6HR #30 tablet 01/14/18 07/26/21 Unknown Rx Vit-Fe Fumar-FA [ 1 each PO QDAY #30 tablet 01/14/18 07/26/21 Unknown Rx Vitamin] Albuterol Mdi (or & Nicu Only) 2 puff IH QID PRN #8.5 gram 11/19/19 07/26/21 Unknown Rx [ProAir HFA Inhaler] Amoxicillin/Potassium Clav 1 each PO BID 10 Days #20 tablet 11/19/19 07/26/21 Unknown Rx [Augmentin 875-125 Tablet] Phenazopyridine [Pyridium] 200 mg PO BID #10 tab 12/05/19 07/26/21 Unknown Rx Ibuprofen [Motrin] 800 mg PO Q8HR PRN #30 tablet 07/27/21 Unknown Rx Active Meds: Active Medications Acetaminophen (Acetaminophen 325 Mg Tab) 650 mg PO Q4H PRN PRN Reason: Pain MILD(1-3)/Fever >100.5/GRIMALDO Last Admin: 07/26/21 15:14 Dose: 650 mg Bisacodyl (Bisacodyl 10 Mg Rect Supp) 10 mg [place] BID PRN PRN Reason: Constipation Diphenhydramine HCl (Diphenhydramine 25 Mg Cap) 25 mg PO Q6H PRN PRN Reason: Itching Ibuprofen (Ibuprofen 600 Mg Tab) 600 mg PO Q6H JOE Last Admin: 07/27/21 10:33 Dose: 600 mg Ketorolac Tromethamine (Ketorolac 30 Mg/1 Ml Inj) 30 mg IV Q6H PRN PRN Reason: Pain, Moderate (4-6) Stop: 07/31/21 03:01 Magnesium Hydroxide (Magnesium Hydroxide (Mom) Oral Liqd Udc) 30 ml PO HS PRN PRN Reason: Constipation Multi-Ingredient Ointment (Lanolin/Zinc/Dimethicone (Lansinoh) 7 Gm) 1 applic TP PRN PRN PRN Reason: Sore Nipples Ondansetron HCl (Ondansetron 4 Mg/2 Ml Inj) 4 mg IV Q8H PRN PRN Reason: Nausea And Vomiting Promethazine HCl (Promethazine 25 Mg Rect Supp) 25 mg [place] Q6H PRN PRN Reason: Nausea And Vomiting Promethazine HCl (Promethazine 25 Mg Tab) 25 mg PO Q6H PRN PRN Reason: Nausea And Vomiting Sodium Chloride (Sodium Chloride 0.9% 10 Ml Flush Syringe) 10 ml IV PRN PRN PRN Reason: LINE FLUSH Witch Esperanza/Glycerin (Witch Esperanza/ Glycerin Pad) 1 each TP PRN PRN PRN Reason: Hemorrhoid/cleansing/soothing Mental Status Exam - Vital signs Last Vital Signs Temp 98.0 F 07/27/21 07:33 Pulse 66 07/27/21 07:33 Resp 16 07/27/21 10:33 BP 123/71 07/27/21 07:33 Pulse Ox 100 07/27/21 09:06 Results Result Diagrams: 07/26/21 18:48 Abnormal lab results 07/26/21 Range/Units 18:48 Hgb 8.5 L (10.1-14.3) gm/dl Hct 23.8 L D (30.3-42.9) % All other labs normal.
--- NOTE | 2021-07-27 11:54 | Vascular Lab Report ---
DUPLEX DOPPLER LOWER EXTREMITY VEINS, LEFT INDICATION: calf pain, recent , cocaine use. TECHNIQUE: Duplex doppler imaging was performed through the veins of the left lower extremity using venous compression and other maneuvers. COMPARISON: No relevant prior imaging study available. FINDINGS: Left Common femoral vein: Negative. Left Superficial femoral vein: Negative. Left Popliteal vein: Negative. Left Calf veins: Negative. Additional findings: None. IMPRESSION: No sonographic evidence for DVT in the left lower extremity. Signer Name: Clement Stevens Jr, MD Signed: 07/27/2021 11:48 AM Workstation Name: [id number]
[2021-07-27] MEDS ORDERED: FLU VACC QUAD 2021-22(6MOS UP)/PF 60 MCG/0.5 ML SYRINGE IM ONE (12:00)
[2021-07-27] MEDS: SERTRALINE 25 MG TAB PO SCH (18:45)
[2021-07-28] MEDS: IBUPROFEN 600 MG TAB PO SCH ×2 (06:38→10:37)
--- NOTE | 2021-07-28 08:57 | Progress Note ---
Assessment and Plan A: PPD#2 s/p at home of unknown EGA P: Continue with routine care with discharge anticipated post social work consult. Subjective - Subjective Date of service: 07/28/21 Principal diagnosis: s/p , unsure gestational age Interval history: PPD#2 s/p at unknown EGA, patient is feeling well and has no complaints. She reports adequate pain control and decreasing lochia. Patient reports: appetite normal, voiding normally, pain well controlled, ambulating normally : in NICU Objective - Vital Signs Latest vital signs: Vital Signs Temp Pulse Resp BP BP Pulse Ox Pulse Ox 07/28/21 00:00 98.7 F 75 18 102/78 07/27/21 23:27 18 07/27/21 19:55 98 07/27/21 18:02 16 07/27/21 15:33 98.0 F 91 H 18 123/64 100 07/27/21 10:33 16 07/27/21 09:06 100 Intake and Output 07/27/21 07/28/21 07/28/21 23:59 07:59 15:59 Intake Total 540 200 Balance 540 200 Intake: Oral 240 200 Intake, Free Water 300 Other: Total, Intake Amount 240 200 # Voids Void 1 1
--- NOTE | 2021-07-28 08:57 | Discharge Summary ---
Providers - Providers Date of Admission: 07/26/21 01:54 Date of discharge: 07/28/21 Attending physician: MARLYN PEDROZA 07/26/21 11:55 Consult to Case Management [CONS] Routine Services Needed at Discharge: Waiter Notified:: Hira Crowe Phone number called:: [phone] Was contact made?: Yes If yes, spoke with:: Hira Crowe Time called:: 11:43 Comment:: STEFANIA Crowe says she will come see the patient. Additional Physician Instructions: Home delivery, no care, and positive for cocaine use. Primary care physician: MARLYN PEDROZA Hospitalization Reason for admission: other (Home at unknown EGA) Delivery: Episiotomy: none Laceration: none complications: none Discharge diagnosis: other (IUP at unknown EGA delivered) Hospital course: Hospital course was uncomplicated Condition at discharge: Good Disposition: 01 HOME / SELF CARE / HOMELESS Plan - Discharge Medications Prescriptions: Ferrous Sulfate [Feosol 325 MG tab] 325 mg PO BID 30 Days #60 tablet Ibuprofen [Motrin] 600 mg PO Q8H PRN 30 Days #30 tablet PRN Reason: Pain Ibuprofen [Motrin] 800 mg PO Q8HR PRN #30 tablet PRN Reason: Pain, Moderate (4-6) Sertraline [Zoloft] 25 mg PO QDAY #30 tab - Provider Discharge Summary Activity: routine, no sex for 6 weeks, no heavy lifting 4 weeks, no strenuous exercise Diet: routine Instructions: routine Additional instructions: [] Smoking cessation referral if applicable(refer to patient education folder for contact #) [] Refer to [facility] Booklet Call your doctor immediately for: * Fever > 100.5 * Heavy vaginal bleeding ( >1 pad per hour) * Severe persistent headache * Shortness of breath * Reddened, hot, painful area to leg or breast * Drainage or odor from incision. * Keep incision clean and dry at all times and follow doctor's instructions regarding bathing/showering - Follow up plan Follow up: KARLENE RUBY AIRWORTH[employer] INSPECTOR [Advanced Practice Nurse] - 7 Days Forms: [facility] Discharge Summary
[2021-07-28] MEDS: SERTRALINE 25 MG TAB PO SCH (11:03)
[2021-07-28 13:01] VITALS: BP 128/55
== END 2021-07-28 15:03 | disposition home or self-care (01) | DRG 776 ==
LOC: LD 01:54 → OB 04:49
PROVIDERS: ADMIT Obstetrics & Gynecology; ATTEND Obstetrics & Gynecology
DX: Z39.0 Encounter for care and examination of mother immediately after delivery (principal); Z91.52 Personal history of nonsuicidal self-harm; Z20.822 Contact with and (suspected) exposure to COVID-19; F32.9 Major depressive disorder, single episode, unspecified; O99.215 Obesity complicating the puerperium; O99.345 Other mental disorders complicating the puerperium; F53.0 Postpartum depression
CPT/HCPCS: 36415; 80307; 81001; 85014; 85018; 85027; 86592; 86706; 86762; 86803; 86850; 86900; 86901; 87086; 87806; 90686; G0378; U0003